=== PATIENT | male | born 1975 | race Caucasian/White ===

== ENCOUNTER 2016-08-21 15:02 | Emergency (ER) | payer MEDICARE, MEDICAID ==
[~2016-08-21] VITALS: Ht 175.3 cm; Wt 73.2 kg
[~2016-08-21 15:02] MED LIST: DIAZ5TAB PO; HYDR-4003 PO; LOPE2TAB32 PO; OMEP20TA86 PO; ONDA8TAB7 PO; TRAM50TA2 PO
[2016-08-21 15:04] VITALS: BP 129/88; PULSE 91; RESP 16; O2SAT 98
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
[2016-08-21 17:41] LABS: BASOPHILS % (AUTO) 0.9 % (0-3); MONOCYTES % (AUTO) 9.8 % (4-12); Mean Corpuscular Hemoglobin 29.8 pg (27.0-35.0); Mean Corpuscular Volume 89.8 fL (81-100); NEUTROPHILS % (AUTO) 54.4 % (40-74); Platelet Count 147 bil/L (150-400)
[2016-08-21 18:20] LABS: TROPONIN T < 0.010 ug/L (0.0-0.011)
[2016-08-21 20:17] VITALS: BP 139/97; PULSE 110; RESP 24; O2SAT 98
[2016-08-22 05:55] VITALS: BP 98/61; PULSE 70; RESP 16; O2SAT 97
[2016-08-22] MEDS ORDERED: Albuterol 0.5% (5mg/mL) 20 mL Inhalation Solution ONE (06:05)
[2016-08-22 10:36] VITALS: BP 136/77; PULSE 102; O2SAT 98
[2016-08-22 11:48] VITALS: BP 122/88; PULSE 95; O2SAT 97
== END 2016-08-22 11:47 | disposition home or self-care (01) ==
LOC: SED 15:02
DX: F41.8 Other specified anxiety disorders (principal); F19.10 Other psychoactive substance abuse, uncomplicated; F43.0 Acute stress reaction; Z86.19 Personal history of other infectious and parasitic diseases; F17.200 Nicotine dependence, unspecified, uncomplicated
CPT/HCPCS: 36415; 80053; 81002; 84443; 84484; 85025; 93005; 99285; G0463; G0480; Q0177

== ENCOUNTER 2016-09-22 15:49 | Emergency (ER) | payer MEDICARE, MEDICAID ==
[~2016-09-22] VITALS: Ht 175.3 cm; Wt 77.3 kg
[2016-09-22 15:55] VITALS: BP 135/95; PULSE 114; RESP 15; O2SAT 96
--- NOTE | 2016-09-22 16:13 | ED.REPORT ---
HPI-Abd Pain M Under 40 Date of Service Sep 22, 2016 ED Provider: Michele Walton DO The patient is a 40 year old male with history of chronic pain, untreated hepatitis C, diverticulitis, kidney stones, anxiety, depression, and bipolar disorder, who was sent to the emergency department for elevated liver enzyme values. The patient has experienced upper abdominal pain that radiates through to his back. His pain has been intermittent over the last several weeks. He denies fever, chills, nausea, decreased appetite, vomiting, diarrhea, hematuria , hematochezia, or hematemesis. He drinks alcohol occasionally, about 1-2 drinks each month. He quit smoking tobacco 4 days ago. He has history of IV drug use but has not used for several years. Nursing Notes Stated Complaint: LIVER PAIN Chief Complaint: General Complaint Nursing Notes Reviewed: Yes Allergies: Coded Allergies: No Known Allergies (Unverified , 08/21/16) Scheduled Diazepam (Valium) 5 Mg Tablet 5 MG PO DAILY Omeprazole (Omeprazole) 20 Mg Tablet.dr 20 MG PO BID Scheduled PRN Hydrocodone-Acetaminophen 5-325 mg (Hydrocodone-Acetaminophen 5-325 mg) 1 Each Tablet 1-2 TABLET PO TID PRN PRN For Pain Loperamide (Loperamide) 2 Mg Tablet 2 MG PO Q4H PRN PRN cramps Ondansetron ODT (Zofran ODT) 8 Mg Tablet 8 MG PO Q6H PRN PRN For Nausea Tramadol (Tramadol) 50 Mg Tablet 100 MG PO Q6H PRN PRN For Pain Tramadol (Tramadol) 50 Mg Tablet 100 MG PO Q6H PRN PRN For Pain General Time Seen by MD: 16:05 Chief Complaint Abdominal pain Hx Obtained From: Patient Arrived By: Walk-in Sudden in Onset?: No Onset Occurred: More than a week ago... Symptom Duration: Intermittent Progression since Onset: Intermittent Location: : Abdomen upper Quality: Painful Radiation: : Back Severity: Current: Mild Severity: Maximum: Moderate Pertinent Negative: Pt denies other symptoms Recent Healthcare: No recent hospitalization Similar Sx Previous: Yes Past Medical History Past Medical History Diverticulosis Chronic pain (patient states had been on tramadol 120/month) Hep C- from a history of IV drug use Kidney stones Anxiety Bipolar disorder Past Surgical History Colon surgery for diverticulitis Left ACL Hernia Family History Noncontributory Smoking History Current Every Day Smoker Social History Going to move to [place] Alcohol Use: "Social" (1-2 per month) Drug Use: Denies drug use Other Social History: Local resident Ambulatory Status Independent Review of Systems Constitutional: Denies: Chills, Fever GI: Reports: Abdominal pain, Denies: Diarrhea, Hematemesis, Hematochezia, Nausea, Vomiting Male: Denies Hematuria Musculoskeletal: Reports: Back pain Complete sys rev & neg: except as marked. Physical Exam Initial Vital Signs Vital Signs (First) Date Time Temp Pulse Resp B/P Pulse Ox O2 Delivery O2 Flow Rate FiO2 09/22/16 15:55 36.4 114 15 135/95 96 Room Air Initial VS: Reviewed Head / Eyes: Atraumatic, Normocephalic, PERRL ENT: Mucous membranes moist, Conjunctiva normal, No scleral icterus Neck: Supple, Non-tender, Full range of motion Lymphatic: No lymphadenopathy Extremities: Vascular intact, Neuro intact, No swelling, No tenderness Skin: Warm, Dry, No cyanosis Neurologic: Alert, Oriented, Nonfocal Psychiatric: Mood/affect normal, Behavior normal, Normal thought content General/Constitutional: Awake, Alert, Cooperative Respiratory / Chest: Atraumatic, Breath sounds NL, Breath sounds = bilat, No respiratory distress, No rales, No rhonchi, No wheezing, No stridor Cardiovascular: Heart rate NL, Regular rhythm, Heart sounds NL, No gallop, No murmurs, No rubs, Peripheral circulation NL Abdomen: Soft, No guarding, No rebound, BS normoactive, No distention, No hernia, No palpable mass, No pulsatile mass Some mid-abdominal tenderness Back: Inspection NL, Full range of motion, No midline vertebral tend, No CVA tenderness Interpretation & Diagnostics Lab Results Interpretation Result Diagram: 09/22/16 1628 09/22/16 1628 Test 09/22/16 16:00 09/22/16 16:28 Hold Urine Received (Received) White Blood Count 11.6th/mm3 (3.8-10.1) Red Blood Count 5.23mil/mm3 (4.40-5.80) Hemoglobin 15.4g/dL (13.8-17.2) Hematocrit 46.2% (41.0-50.0) Mean Corpuscular Volume 88.3fL (81-100) Mean Corpuscular Hemoglobin 29.4pg (27.0-35.0) Mean Corpuscular Hemoglobin Concent 33.3% (32.0-37.0) Red Cell Distribution Width 13.4% (12.3-15.4) Platelet Count 188bil/L (150-400) Neutrophils (%) (Auto) 53.7% (40-74) Lymphocytes (%) (Auto) 30.1% (14-46) Monocytes (%) (Auto) 11.3% (4-12) Eosinophils (%) (Auto) 3.7% (0-5) Basophils (%) (Auto) 0.9% (0-3) Prothrombin Time 10.1sec (8.1-12.5) Prothromb Time International Ratio 0.95ratio Sodium Level 136mEq/L (134-144) Potassium Level 4.1mEq/L (3.5-5.2) Chloride Level 99mEq/L (97-108) Carbon Dioxide Level 20mmol/L (18-29) Blood Urea Nitrogen 15mg/dL (6-20) Creatinine 0.83mg/dL (0.76-1.27) Estimat Glomerular Filtration Rate 110mL/min (>59) Glucose Level 99mg/dL (60-99) Calcium Level 9.8mg/dL (8.5-10.1) Magnesium Level 2.1mg/dL (1.6-2.6) Total Bilirubin 0.4mg/dL (0.0-1.2) Aspartate Amino Transf (AST/SGOT) 350U/L (0-50) Alanine Aminotransferase (ALT/SGPT) 435U/L (0-44) Alkaline Phosphatase 158U/L (25-150) Total Protein 8.6g/dL (6.4-8.4) Albumin 3.9g/dL (3.4-5.0) Lipase 34U/L (13-60) Re-Eval/Medical Decision Med Decision/Clinical Course Patient comes in with reports of vague abdominal pain, he has been seen several times over the last year in the ER for this. He has ongoing elevated LFTs which have up trended over the last year, as CT is unremarkable except for hepatic steatosis. I do not think he has any life-threatening pathology this may be sequela of hepatitis C. He should follow-up with a oral and maxillofacial surgery resident for hep C treatment and further evaluation of his liver function. Return and follow-up precautions given. Source of Hx: Old records Re-Evaluation/Progress : Time of Eval: 18:15 )( Re-Eval Abdomen: Soft, Non-tender, No guarding, No rebound Re-Evaluation/Progress Note: Reevaluated patient, feeling significantly better after Toradol, CT and labs likely consistent with chronic hepatitis, discussed extensively with patient that he needs close follow-up with the oral and maxillofacial surgery resident, gave him strict return and follow-up precautions. Counseled Regarding: Diagnosis, Lab results Patient Discharge & Departure Primary Impression: Transaminitis Disposition: Home Discharge Condition All VS Reviewed: Yes Condition: Stable Additional Instructions: Thank you for coming to the ER today. Your liver function tests are again abnormal, these have been slowly increasing over the last year. It does not appear that you have a life-threatening cause for her symptoms today. However you should be followed very closely by a oral and maxillofacial surgery resident to further evaluate your liver. Your symptoms may be related to underlying hepatitis C, however you may require further testing as determined by a oral and maxillofacial surgery resident. Return to the ER if you develop a high fever, persistent vomiting, blood in her vomit or stool, Jaundice (skin turns yellow), or have other concerns. Use [id number] naproxen as needed for pain. Referrals: NOPCP (PCP) (Family) Scribe Attestation Portions of this note were transcribed by Devika Munson. I, Dr. Walton personally performed the history, physical exam and medical decision-making; I reviewed and confirmed the accuracy of the information in the transcribed note. Signed by: Danny Valencia, 09/22/2016 at [Time]. Michele Walton DO Sep 22, 2016 16:13 Devika Munson Sep 22, 2016 16:20
[2016-09-22] MEDS ORDERED: 0.9% Sodium Chloride 1,000 ML IV ONE (16:23)
[2016-09-22] MEDS ORDERED: Ondansetron 2 mg/mL 2 mL Inj IVPUSH PRN (16:25)
[2016-09-22 16:57] LABS: BASOPHILS % (AUTO) 0.9 % (0-3); EOSINOPHILS % (AUTO) 3.7 % (0-5); MONOCYTES % (AUTO) 11.3 % (4-12); Mean Corpuscular Hemoglobin 29.4 pg (27.0-35.0); Mean Corpuscular Volume 88.3 fL (81-100); NEUTROPHILS % (AUTO) 53.7 % (40-74); Platelet Count 188 bil/L (150-400)
[2016-09-22] MEDS ORDERED: Ketorolac 15 mg/mL Inj IVPUSH ONE (17:00)
[2016-09-22 17:13] LABS: INR 0.95 ratio
[2016-09-22 17:23] LABS: Magnesium 2.1 mg/dL (1.6-2.6)
--- NOTE | 2016-09-22 18:06 | DRSVH ---
PROCEDURE: CT ABDOMEN AND PELVIS WITH CONTRAST ([id number]) INDICATIONS: abd pain TECHNIQUE: After the administration of intravenous contrast, 5 mm thick sections acquired from the diaphragm to the symphysis. 5 mm coronal and sagittal reformats were acquired. For radiation dose reduction, the following was used: automated exposure control, adjustment of mA and/or kV according to patient jose luis almonte. COMPARISON: [facility], CT, CT ABD PELVIS W CON, 05/09/2016, 14:00. FINDINGS: Image quality: Excellent. ABDOMEN: Lung bases: Lung bases are clear. Heart size is normal. Solid organs: Liver is mildly enlarged with steatosis. normal in size and enhancement. Gallbladder is unremarkable. Biliary system is non dilated. Pancreas enhances normally. No adrenal nodules. K idneys demonstrate normal size and enhancement, without hydronephrosis. There are two punctate nonob structing superior pole renal calcifications, unchanged. Peritoneum and bowel: Bowel loops demonstrate normal wall thickness and caliber. No free fluid or a ir. Mild scattered diverticula are present. The appendix is unremarkable. Nodes and vessels: No retroperitoneal or mesenteric adenopathy by size criteria. Aorta and inferior vena cava are normal in size. Miscellaneous: Fat containing ventral hernia is present.. There is mild appearance of distal esophag eal thickening, unchanged. PELVIS: Genitourinary: Bladder wall thickness is normal. Miscellaneous: No inguinal hernias or adenopathy. Bones: No suspicious bony lesions. No vertebral body compression fractures. IMPRESSION: 1. Mild hepatomegaly with steatosis. 2. Unchanged nonobstructing punctate right renal calculi. 3. Diverticulosis. Dictated by: Malissa Jaquez M.D. on 09/22/2016 at 18:02 Approved by: Malissa Jaquez M.D. on 09/22/2016 at 18:04
== END 2016-09-22 18:30 | disposition home or self-care (01) ==
LOC: SED 15:49
DX: R74.0 Nonspecific elevation of levels of transaminase and lactic acid dehydrogenase [LDH] (principal); G89.29 Other chronic pain; B19.20 Unspecified viral hepatitis C without hepatic coma; F41.9 Anxiety disorder, unspecified; F31.9 Bipolar disorder, unspecified; F17.200 Nicotine dependence, unspecified, uncomplicated; F19.21 Other psychoactive substance dependence, in remission; Z87.19 Personal history of other diseases of the digestive system; Z87.442 Personal history of urinary calculi; Z87.898 Personal history of other specified conditions
CPT/HCPCS: 36415; 74177; 80053; 83690; 83735; 85025; 85610; 96361; 96374; 96375; 99285; J1885; J2405; J7030; Q9967